=== PATIENT | male | born 2000 | race Caucasian/White ===

== ENCOUNTER 2023-04-25 16:52 | Emergency (ER) | payer OTHER, SELFPAY ==
[2023-04-25 17:08] VITALS: BP 138/82; PULSE 46; RESP 16; TEMP 36.3; O2SAT 100
--- NOTE | 2023-04-25 18:03 | ED.HEATRA ---
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 He was playing soccer prior to arrival, hit heads with another player, was left with an indentation in the center of his forehead just above the eyebrows. He is wondering if he can take some Tylenol, the area itself is quite sore but not necessarily a headache. No visual changes, no hearing changes, arms and legs are working fine, no neck pain. There was no loss of consciousness. He thinks he has a history of a remote head injury as a child, no concussion since then. He did have some nausea initially but laying down here and resting has helped that. MD Complaint: head injury Related Data Home Medications Medication Instructions Recorded Confirmed No Known Home Medications 04/25/23 04/25/23 Allergies Allergy/AdvReac Type Severity Reaction Status Date / Time Penicillins AdvReac Mild Hives Verified 04/25/23 17:13 Review of Systems Status of ROS: Reports: 6 or more systems reviewed and unremarkable except as noted in History and below [facility] Social History Smoking Status: Never smoker Do you use any of these nicotine containing products: None How often do you have a drink containing alcohol: 2-4 times a month How many standard drinks containing alcohol do you have on a typical day: 1 or 2 How often do you have six or more drinks on one occasion: Never AUDIT-C Alcohol total score: 2 Non-prescribed substance use: denies use Exam Const: Vital Signs, click to edit/add: Vital Signs - 24 hr 04/25/23 17:08 Temperature 97.4 F L Pulse Rate [Pulse Oximeter] 46 L Respiratory Rate 16 Blood Pressure [Ri ght Upper Arm] 138/82 Pulse Oximetry 100 Oxygen Delivery Me thod Room Air This is a 22-year-old male lying on the bed in exam room to come looks comfortable. Has about a quarter-size visible indentation of the skin that looks like a symmetric crater without any open wound right in the center of his forehead just above the eyebrows. Pupils equal round reactive, sclera clear, extraocular muscles intact. TMs canals without any hemotympanum, no drainage, normal appearance. Anterior nares normal, no drainage. No tenderness when I palpate down the nasal bridge. TMJs are normal, no pain with range of motion of the jaw. Speech is normal. Neck nontender. Patient was ambulatory into the ED of his own accord. This center area in his for Ed is depressed, unable to tell if this is just soft tissue depression or if there could be underlying bony involvement. Documenting provider has reviewed patient's vital signs: yes Course Course ED Course: Reviewed with patient that he certainly can have a dose of Tylenol, will order 1000 mg p.o.. As far as imaging, given there is indentation in the forehead, do recommend head CT. We discussed that this was the gold standard for cranial imaging to rule out fracture. Given his presentation, I am certainly hopeful that there is no underlying intracranial pathology. We do certainly need to rule out calvarium fracture though. Reevaluation(s) Time of Reevaluation #1: 19:10 Reevaluation #1: Patient's head pain has improved with the Tylenol, is still there some but tolerable for him at this time. Did show him picture of the skull fracture. Awaiting radiology over read and will contact [facility] regarding this. He understands if [facility] is on divert may need to contact the other trauma institutions which do include [facility], [facility] and [facility]. Time of Reevaluation #2: 19:36 Reevaluation #2: Reviewed with patient that [facility] is on divert, not accepting patients outside of there core which he does not qualify. [facility] has not seen him as a patient and they are on divert and thus will not do a phone consult for me to try to get him arrange for outpatient follow-up with ENT. I did call [facility], they are going to page out their ENT and contact me back. Patient is stable, aware that we are waiting to try to talk to network consultant that may be able to follow-up with him outpatient. Time of Reevaluation #3: 20:11 Reevaluation #3: Reviewed with patient the maxillofacial specialist on-call for [facility]. He will be seen the patient either Monday or next Monday, he will be having his clinic contact them. He did want sinus CT done, have let the patient know this. Radiology did subsequently talk to me about reconstituting sinus images, spoke with radiologist Dr. Castillo and he agreed with reconstituting the head CT. We went over patient's injury and he thought this would be sufficient. An isolated head injury to the front of his head in the left sinus area. Patient did relate to me that he just wanted to try Tylenol and ibuprofen for pain management, did not want narcotics. Reviewed with him that I think it is reasonable for him to try this but will send him with a prescription for pain management with narcotics if he should need it. Consultations Consultation #1: Spoke with maxillofacial specialist on-call Dr. Nichole from [facility]. Gave him the patient's information, reviewed the history. He would like sinus imaging done just to ensure that there is no posterior wall loss of continuity. Will get this addressed, make sure all the images are placed on a disc for him for the patient to bring the follow-up. We reviewed sinus precautions with elevating the head of the bed icing, no nose blowing, no submerged water. He is fine with Tylenol ibuprofen and narcotic for pain management. Time: 20:07 Vital Signs Vital signs: Initial Vital Signs Temperature 97.4 F L 04/25/23 17:08 Temperature Source Temporal Artery Scan 04/25/23 17:08 Pulse Rate 46 L 04/25/23 17:08 Pulse Rhythm Regular 04/25/23 17:08 Respiratory Rate 16 04/25/23 17:08 Blood Pressure 138/82 04/25/23 17:08 Blood Pressure Mean 100 04/25/23 17:08 Blood Pressure Position Sitting 04/25/23 17:08 Pulse Oximetry 100 04/25/23 17:08 Oxygen Delivery Method Room Air 04/25/23 17:08 Vital Signs Temperature 97.4 F L 04/25/23 17:08 Pulse Rate 46 L 04/25/23 17:08 Respiratory Rate 16 04/25/23 17:08 Blood Pressure 138/82 04/25/23 17:08 Pulse Oximetry 100 04/25/23 17:08 Oxygen Delivery Method Room Air 04/25/23 17:08 Temperature 97.4 F L 04/25/23 17:08 Pulse Rate 46 L 04/25/23 17:08 Respiratory Rate 16 04/25/23 17:08 Blood Pressure 138/82 04/25/23 17:08 Pulse Oximetry 100 04/25/23 17:08 Oxygen Delivery Method Room Air 04/25/23 17:08 MDM - Head Injury Imaging Data CT scan - head: Attestation: I have reviewed the pertinent imaging results. My impression: I can see is skull fracture frontal sinus with some acute hemorrhage within the sinus. Do not appreciate intraparenchymal bleed but certainly will be awaiting Radiology over-read. Radiologist's impression: Patient: SHAKIRA CARL Facility:?[facility] Patient ID:?[id number] Site Patient ID:?[id number]. Site :?[id number] Study:?CT Head WITHOUT-04/25/2023 6:30:00 PM Ordering Physician:?Simone Torres Final Report: INDICATION: Trauma. TECHNIQUE: Noncontrast CT images acquired through the brain. COMPARISON: None. FINDINGS: The ventricles and sulci are within normal limits for patient age. No mass effect or midline shift. The landeros-white differentiation is maintained. No acute intracranial hemorrhage or pathologic extra-axial fluid collection. The globes are symmetric. Comminuted, depressed fracture of the left frontal sinus anterior wall. Blood products layering within the left frontal and left maxillary sinuses. The globes are symmetric. No retrobulbar hemorrhage. The mastoid air cells are clear. IMPRESSION: 1. No acute intracranial hemorrhage or mass effect. 2. Comminuted, depressed fracture of the left frontal sinus anterior wall. Blood products layering within the left frontal and left maxillary sinuses. Please note that all CT scans at this facility use dose modulation, iterative reconstruction, and/or weight-based dosing when appropriate to reduce radiation dose to as low as reasonably achievable. Dictated by Julio Castillo MD @ 04/25/2023 7:05:00 PM (Electronic Signature) Discharge Plan Discharge Clinical Impression: Fracture of frontal sinus Patient Disposition: Home, Self-Care Condition: Stable Instructions: Skull Fracture (ED) Additional Instructions: This is technically a fracture of the left frontal wall which we do not have specific patient Education for. You can treat with Tylenol and ibuprofen following bottle directions. I have given a prescription for 10 tablets of oxycodone 5 mg, can take to the pharmacy if your pain is insufficiently controlled with [id number] medicines. Narcotics are mood altering, can cause nausea and constipation, cannot drive or operate machinery while on them. Narcotics also can have addictive potential. The maxillofacial specialist Dr. Nichole will have his office contact you for follow-up either this Monday or the following Monday. You are to elevate the head of your bed 30?, ice your frontal forehead area, do not blow your nose, no submerged under water time. If you are having increasing pain, develops clear runny drainage from the left nares, have unexplained fever and increasing headache, do need to be re-evaluated. Obviously no contact sports, would not recommend any rigorous physical activity at this time until further cleared at your follow-up by the specialist. Prescriptions: No Action No Known Home Medications Follow Up/Referrals: Provider,Not a Local [Primary Care Provider] - Stand Alone Forms: [employer] Info Instructions
--- NOTE | 2023-04-25 18:08 | CRLHL7_ITS ---
For Patients: As a result of the Century Cures Act, medical imaging exams and procedure reports are released immediately into your electronic medical record. You may view this report before your referring provider. If you have questions, please contact your health care provider. INDICATION: Trauma. TECHNIQUE: Noncontrast CT images acquired through the brain. COMPARISON: None. FINDINGS: The ventricles and sulci are within normal limits for patient age. No mass effect or midline shift. The landeros-white differentiation is maintained. No acute intracranial hemorrhage or pathologic extra-axial fluid collection. The globes are symmetric. Comminuted, depressed fracture of the left frontal sinus anterior wall. Blood products layering within the left frontal and left maxillary sinuses. The globes are symmetric. No retrobulbar hemorrhage. The mastoid air cells are clear. IMPRESSION: 1. No acute intracranial hemorrhage or mass effect. 2. Comminuted, depressed fracture of the left frontal sinus anterior wall. Blood products layering within the left frontal and left maxillary sinuses. Please note that all CT scans at this facility use dose modulation, iterative reconstruction, and/or weight-based dosing when appropriate to reduce radiation dose to as low as reasonably achievable. Dictated by Julio Castillo MD @ 04/25/2023 7:05:00 PM (Electronically Signed) ----- ADDENDUM ----- Thin section reformatted images have now been provided. No fracture extension through the frontal sinus posterior wall. No pneumocephalus. Dictated by Julio Castillo MD @ Apr 25 2023 8:36PM Signed by:?Julio Castillo MD @04/25/2023 7:05:00 PM (Electronic Signature)
[2023-04-25] MEDS: ACETAMINOPHEN 500 MG TABLET 1000 MG PO (18:22)
== END 2023-04-25 21:30 | disposition home or self-care (01) ==
PROVIDERS: Emergency Provider Family Medicine
DX: S02.19XA Other fracture of base of skull, initial encounter for closed fracture (principal); W51.XXXA Accidental striking against or bumped into by another person, initial encounter; Y93.66 Activity, soccer
CPT/HCPCS: 70450; 99284; A9270